=== PATIENT | female | born 1960 | race Caucasian/White ===

== ENCOUNTER 2020-04-23 10:18 | Day surgery (SDC) | payer OTHER ==
[~2020-04-23 10:18] MED LIST: Lactated Ringers 1,000 ML IV SCH; Sodium Chloride 0.9% 10 ML SDV IV PRN; Sodium Chloride 0.9% 10 ML Syringe FLUSH PRN; Sodium Chloride 0.9% 2.5 ML Syringe FLUSH PRN
--- NOTE | 2020-04-23 11:02 | PCM.PREANE ---
Preanesthetic Assessment - Anesthesia/Transfusion/Family Hx Anesthesia History: Prior Anesthesia Without Reaction Family History of Anesthesia Reaction: No Transfusion History: No Prior Transfusion(s) - Review of Systems General: No Symptoms Pulmonary: No Symptoms, Sputum Gastrointestinal: No Symptoms Neurological: No Symptoms Other: Reports: None - Physical Assessment Vital Signs: Last Vital Signs Temp 99.7 F 04/23/20 10:50 Pulse 92 04/23/20 10:50 Resp 16 04/23/20 10:50 BP 154/101 H 04/23/20 10:50 Pulse Ox 95 04/23/20 10:50 Height: 4 ft 10.5 in Weight: 68.039 kg ASA Class: 2 Mental Status: Alert & Oriented x3 Dentition: Reports: Normal Dentition ROM/Head Extension: Full Lungs: Clear to Auscultation, Normal Respiratory Effort Cardiovascular: Regular Rate, Regular Rhythm - Allergies Allergies/Adverse Reactions: Allergies Allergy/AdvReac Type Severity Reaction Status Date / Time No Known Allergies Allergy Verified 04/17/20 12:29 - Blood Blood Available: No - Anesthesia Plan Pre-Op Medication Ordered: None - Acknowledgements Anesthesia Type Planned: General Anesthesia (tiva) Pt an Appropriate Candidate for the Planned Anesthesia: Yes Alternatives and Risks of Anesthesia Discussed w Pt/Guardian: Yes Pt/Guardian Understands and Agrees with Anesthesia Plan: Yes PreAnesthesia Questionnaire Gastrointestinal History: Reports: Colon Polyp 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: Endocrine/Metabolic History: Reports: Hypothyroidism Oncologic (Cancer) History: Reports: Breast - Past Surgical History Head Surgeries/Procedures: Reports: None HEENT Surgical History: Reports: Tonsillectomy GI Surgical History: Reports: Appendectomy, Colonoscopy, Other (See Below) Other GI Surgeries/Procedures: Abdominoplasty Female Surgical History: Reports: Breast Biopsy, Breast Implant, Section, Mastectomy, Salpingo-Oophorectomy, Other (See Below) Other Female Surgeries/Procedures: hx of bilateral mastectomy with reconstruction, x3 Oncologic Surgical History: Reports: Lumpectomy, Mastectomy - SUBSTANCE USE Smoking Status *Q: Former Smoker Tobacco Use Within Last Twelve Months: No Recreational Drug Use History: No - HOME MEDS Home Medications: Home Meds Calcium Carbonate/Vitamin D3 [Calcium 600 + Vit D 200] 600 mg PO DAILY 04/17/20 [History] Cholecalciferol (Vitamin D3) [Vitamin D3] 5,000 unit PO DAILY 04/17/20 [History] Levothyroxine Sodium 88 mcg PO QAM 04/17/20 [History] Multivitamin 1 tab PO DAILY 04/17/20 [History] - CURRENT (IN HOUSE) MEDS Current Meds: Current Medications Lactated Ringer's (Ringers, Lactated) 1,000 mls @ 125 mls/hr IV ASDIRECTED MARCY Sodium Chloride (Saline Flush) 10 ml FLUSH ASDIRECTED PRN PRN Reason: Keep Vein Open Sodium Chloride (Saline Flush) 2.5 ml FLUSH ASDIRECTED PRN PRN Reason: Keep Vein Open Sodium Chloride (Saline Flush) 10 ml FLUSH ASDIRECTED PRN PRN Reason: Keep Vein Open Sodium Chloride (Saline Flush) 2.5 ml FLUSH ASDIRECTED PRN PRN Reason: Keep Vein Open Sodium Chloride (Normal Saline) 10 ml IV ASDIRECTED PRN PRN Reason: IV Use
[2020-04-23] MEDS ORDERED: fentaNYL 100 MCG/2 ML SDV ONE (12:14)
[2020-04-23] MEDS ORDERED: Midazolam 1 MG/ML 2 ML SDV ONE (12:14)
[2020-04-23] MEDS ORDERED: Propofol 200 MG/20 ML SDV ONE (12:14)
--- NOTE | 2020-04-23 13:12 | PCM.OPNOTE ---
- General Post-Op/Procedure Note Date of Surgery/Procedure: 04/23/20 Operative Procedure(s): Diagnostic colonosocpy with polypectomy Findings: Ascending colon polyp. Hyperplastic polyps of distal sigmoid colon and rectum. Pre Op Diagnosis: History of colon polyps Post-Op Diagnosis: Ascending colon polyp, hyperplastic colon polyps Anesthesia Technique: [facility] [place] Primary Surgeon: Juana Phoenix Condition: Good
--- NOTE | 2020-04-23 13:32 | PCM.POSTAN ---
POST ANESTHESIA ASSESSMENT - MENTAL STATUS Mental Status: Alert, Oriented - VITAL SIGNS Vital Signs: Last Vital Signs Temp 98.2 F 04/23/20 13:07 Pulse 67 04/23/20 13:23 Resp 20 04/23/20 13:23 BP 131/80 04/23/20 13:23 Pulse Ox 96 04/23/20 13:23 - RESPIRATORY Respiratory Status: Respiratory Rate WNL, Airway Patent, O2 Saturation Stable - CARDIOVASCULAR CV Status: Pulse Rate WNL, Blood Pressure Stable - GASTROINTESTINAL GI Status: No Symptoms - POST OP HYDRATION Hydration Status: Adequate & Stable
--- NOTE | 2020-04-23 13:32 | PCM48HPAN ---
Post Anesthesia Note - EVALUATION WITHIN 48HRS OF ANESTHETIC Vital Signs in Normal Range: Yes Patient Participated in Evaluation: Yes Respiratory Function Stable: Yes Airway Patent: Yes Cardiovascular Function Stable: Yes Hydration Status Stable: Yes Pain Control Satisfactory: Yes Nausea and Vomiting Control Satisfactory: Yes Mental Status Recovered: Yes Vital Signs: Last Vital Signs Temp 98.2 F 04/23/20 13:07 Pulse 67 04/23/20 13:23 Resp 20 04/23/20 13:23 BP 131/80 04/23/20 13:23 Pulse Ox 96 04/23/20 13:23
--- NOTE | 2020-04-24 15:58 | OR ---
SURGEON: JUANA PHOENIX MD DATE OF PROCEDURE: 04/23/2020 PREOPERATIVE DIAGNOSIS: History of colon polyps. POSTOPERATIVE DIAGNOSES: 1. Ascending colon polyp. 2. Hyperplastic sigmoid colon polyps. PROCEDURE PERFORMED: Diagnostic colonoscopy with polypectomy. PRIMARY SURGEON: Juana Phoenix MD ANESTHESIA: MAC. INSTRUMENT USED: Olympus colonoscope. EXTENT OF EXAM: To the cecum. PREPARATION: Good. LIMITATIONS: None. INDICATIONS FOR EXAMINATION: The patient is a 59-year-old female who presents for a repeat colonoscopy. She had one 5 years ago that revealed colon polyps. I explained the procedure to the patient, the expected perioperative course, and the risks. She verbalized understanding and wishes to proceed. PROCEDURE IN DETAIL: The patient was brought into the endoscopy suite and placed in the left lateral decubitus position. A time-out was completed verifying the patient's name, age, date of , allergies, and procedure to be performed. Monitored anesthesia care was induced and continuous oxygen was provided via nasal cannula throughout the procedure. After adequate sedation was achieved, a digital rectal exam was performed. This exam was within normal limits. A well-lubricated colonoscope was inserted in the rectum and advanced under direct visualization to the level of the cecum. The cecum was identified by both visual and anatomic landmarks. A photograph was taken of the cecal cap; however, I could not retroflex the scope due to looping of the scope more proximally. The scope was then fully withdrawn while examining the color, texture, anatomy, and integrity of the mucosa from the cecum to the anal canal. In the proximal ascending colon, the patient had a small sessile polyp. This was removed in piecemeal fashion using cold biopsy forceps. This was labeled as ascending colon polyp. In the distal sigmoid colon as well as the rectum, the patient was noted to have multiple hyperplastic appearing polyps. None of these appeared to have atypical features. Photographs of these were taken. The scope was then brought into the rectum and retroflexed to allow visualization of the anal canal opening. This appeared normal and a photograph was taken. The scope was straightened out and fully withdrawn. The cecum to anus time was 7 minutes. The patient tolerated the procedure well and was transferred to the PACU in stable condition. ENDOSCOPIC DIAGNOSES: 1. Ascending colon polyp. 2. Hyperplastic sigmoid colon polyps. RECOMMENDATIONS: Follow up in clinic in 2 weeks. LETTY YEN /[id number]
== END 2020-04-23 13:58 | disposition home or self-care (01) ==
LOC: MW.SDS 10:18
PROVIDERS: ATTEND Surgery
DX: Z12.11 Encounter for screening for malignant neoplasm of colon (principal); D12.2 Benign neoplasm of ascending colon; E03.9 Hypothyroidism, unspecified; Z79.890 Hormone replacement therapy; Z87.891 Personal history of nicotine dependence; Z86.010 Personal history of colon polyps; Z79.899 Other long term (current) drug therapy
CPT/HCPCS: 45380; 88305; J2001; J2250; J2704; J3010; J7120; 00812

== ENCOUNTER 2020-09-27 06:39 | Day surgery (SDC) | payer OTHER ==
[~2020-09-27 06:39] MED LIST changes: -Sodium Chloride 0.9% 10 ML SDV IV PRN; -Sodium Chloride 0.9% 10 ML Syringe FLUSH PRN; -Sodium Chloride 0.9% 2.5 ML Syringe FLUSH PRN
[2020-09-27] MEDS ORDERED: Propofol 200 MG/20 ML SDV ONE (07:02)
[2020-09-27] MEDS ORDERED: Midazolam 1 MG/ML 2 ML SDV ONE (07:02)
[2020-09-27] MEDS ORDERED: Glycopyrrolate 0.2 MG/ML SDV ONE (07:03)
[2020-09-27] MEDS ORDERED: Rocuronium Bromide 50 MG/5 ML Syringe ONE (07:03)
[2020-09-27] MEDS ORDERED: Ondansetron 4 MG/2 ML SDV ONE (07:03)
[2020-09-27] MEDS ORDERED: fentaNYL 250 MCG/5 ML SDV ONE (07:03)
[2020-09-27] MEDS ORDERED: Lidocaine 2% 5 ML SDV ONE (07:03)
--- NOTE | 2020-09-27 07:21 | PCM.PREANE ---
Preanesthetic Assessment - Anesthesia/Transfusion/Family Hx Anesthesia History: Prior Anesthesia Without Reaction Family History of Anesthesia Reaction: No Transfusion History: No Prior Transfusion(s) Intubation History: Unknown - Review of Systems General: No Symptoms Pulmonary: No Symptoms Cardiovascular: No Symptoms Gastrointestinal: No Symptoms Neurological: No Symptoms Other: Reports: None - Physical Assessment Height: 4 ft 10.5 in Weight: 67.585 kg ASA Class: 2 Mental Status: Alert & Oriented x3 Airway Class: Mallampati = 2 Dentition: Reports: Normal Dentition, [place] Flat(s) (back side) Thyro-Mental Finger Breadths: 3 Mouth Opening Finger Breadths: 3 ROM/Head Extension: Full Lungs: Clear to Auscultation, Normal Respiratory Effort Cardiovascular: Regular Rate, Regular Rhythm - Allergies Allergies/Adverse Reactions: Allergies Allergy/AdvReac Type Severity Reaction Status Date / Time No Known Allergies Allergy Verified 09/23/20 10:46 - Blood Blood Available: No - Anesthesia Plan Pre-Op Medication Ordered: None - Acknowledgements Anesthesia Type Planned: General Anesthesia Pt an Appropriate Candidate for the Planned Anesthesia: Yes Alternatives and Risks of Anesthesia Discussed w Pt/Guardian: Yes Pt/Guardian Understands and Agrees with Anesthesia Plan: Yes PreAnesthesia Questionnaire HEENT History: Reports: None Cardiovascular History: Reports: Hypertension Respiratory History: Reports: None Gastrointestinal History: Reports: Colon Polyp Genitourinary History: Reports: None 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: Musculoskeletal History: Reports: None Neurological History: Reports: None Psychiatric History: Reports: Other (See Below) Other Psychiatric History: depression in the past after loss of 2 years ago Endocrine/Metabolic History: Reports: Hypothyroidism, Obesity/BMI 30+ (BMI 30.6) Hematologic History: Reports: None Immunologic History: Reports: None Oncologic (Cancer) History: Reports: Breast Other Oncologic History: BRCA+ Dermatologic History: Reports: None - Infectious Disease History Infectious Disease History: Reports: None - Past Surgical History Head Surgeries/Procedures: Reports: None HEENT Surgical History: Reports: Oral Surgery, Tonsillectomy Cardiovascular Surgical History: Reports: None Respiratory Surgical History: Reports: None GI Surgical History: Reports: Appendectomy, Colonoscopy, Other (See Below) Other GI Surgeries/Procedures: Abdominoplasty Female Surgical History: Reports: Breast Biopsy, Breast Implant, Breast Reconstruction, Section (x3), Mastectomy (bilateral), Salpingo- Oophorectomy, Other (See Below) Other Female Surgeries/Procedures: hx of bilateral mastectomy with reconstruction, x3, max S&O, needle aspiration breast seroma Endocrine Surgical History: Reports: None Neurological Surgical History: Reports: None Musculoskeletal Surgical History: Reports: None Oncologic Surgical History: Reports: Lumpectomy, Mastectomy Dermatological Surgical History: Reports: Plastic Surgical Reconstruction/Repair - SUBSTANCE USE Tobacco Use Status *Q: Former Tobacco User Tobacco Use Within Last Twelve Months: No - HOME MEDS Home Medications: Home Meds Calcium Carbonate/Vitamin D3 [Calcium 600 + Vit D 200] 600 mg PO DAILY 04/17/20 [History] Cholecalciferol (Vitamin D3) [Vitamin D3] 5,000 unit PO DAILY 04/17/20 [History] Levothyroxine Sodium 88 mcg PO QAM 04/17/20 [History] Multivitamin 1 tab PO DAILY 04/17/20 [History] hydroCHLOROthiazide [Hydrochlorothiazide] 0.5 tab PO DAILY 09/23/20 [History] - CURRENT (IN HOUSE) MEDS Current Meds: Current Medications Lactated Ringer's (Ringers, Lactated) 1,000 mls @ 100 mls/hr IV ASDIRECTED MARCY Discontinued Medications Fentanyl (Sublimaze) Confirm Administered Dose 250 mcg .ROUTE .STK-MED ONE Stop: 09/27/20 07:04 Glycopyrrolate (Robinul) Confirm Administered Dose 0.8 mg .ROUTE .STK-MED ONE Stop: 09/27/20 07:04 Lidocaine (Xylocaine-Mpf 2%) Confirm Administered Dose 5 ml .ROUTE .STK-MED ONE Stop: 09/27/20 07:04 Midazolam HCl (Versed 1 Mg/Ml) Confirm Administered Dose 2 mg .ROUTE .STK-MED ONE Stop: 09/27/20 07:03 Ondansetron HCl (Zofran) Confirm Administered Dose 4 mg .ROUTE .STK-MED ONE Stop: 09/27/20 07:04 Propofol (Diprivan 20 Ml) Confirm Administered Dose 200 mg .ROUTE .STK-MED ONE Stop: 09/27/20 07:03 Rocuronium Rochdale (Rocuronium Rochdale) Confirm Administered Dose 50 mg .ROUTE .STK-MED ONE Stop: 09/27/20 07:04
[2020-09-27] MEDS ORDERED: ceFAZolin 1 GM Vial ONE (07:31)
[2020-09-27] MEDS ORDERED: Sodium Chloride 0.9% 20 ML ONE (07:31)
[2020-09-27] MEDS ORDERED: Methylene Blue 50 MG/10 ML Ampule ONE (07:34)
[2020-09-27] MEDS ORDERED: Bupivacaine 0.25% 10 ML SDV ONE (07:34)
[2020-09-27] MEDS ORDERED: Fluorescein 5 ML Vial ONE (07:34)
[2020-09-27] MEDS ORDERED: Octyl 2-Cyanoacrylate 1 Tube ONE (07:34)
[2020-09-27 07:45] LABS: BLOOD UREA NITROGEN,BUN 21 mg/dL (7.0-18.0); CHLORIDE,CL 108 mmol/L (98-107); GLUCOSE RANDOM 122 mg/dL (74-106); POTASSIUM,K 3.8 mmol/L (3.5-5.1); SODIUM,NA 142 mmol/L (136-145)
[2020-09-27] MEDS ORDERED: Phenylephrine 1% 10 MG/ML SDV ONE (08:42)
[2020-09-27] MEDS ORDERED: HYDROmorphone 2 MG/ML Syringe ONE (08:51)
[2020-09-27] MEDS ORDERED: Acetaminophen 1,000 MG in Premix Bag 1 BAG IV PRN (08:57)
[2020-09-27] MEDS ORDERED: fentaNYL 100 MCG/2 ML SDV IVPUSH PRN (08:57)
[2020-09-27] MEDS ORDERED: Promethazine 25 MG/ML SDV IM PRN (10:44)
[2020-09-27] MEDS ORDERED: Acetaminophen/oxyCODONE 325-5 MG Tab PO PRN ×2 (10:44)
[2020-09-27] MEDS ORDERED: Ondansetron 4 MG/2 ML SDV IVPUSH PRN (10:44)
[2020-09-27] MEDS ORDERED: Morphine 4 MG/ML Syringe IVPUSH PRN (10:44)
[2020-09-27] MEDS ORDERED: Ketorolac 30 MG/ML SDV IVPUSH ONE (10:44)
--- NOTE | 2020-09-27 11:26 | PCM.POSTAN ---
POST ANESTHESIA ASSESSMENT - MENTAL STATUS Mental Status: Alert, Oriented - VITAL SIGNS Vital Signs: Last Vital Signs Temp 36.4 C 09/27/20 10:31 Pulse 67 09/27/20 11:17 Resp 13 09/27/20 11:17 BP 149/84 H 09/27/20 11:17 Pulse Ox 96 09/27/20 11:17 - RESPIRATORY Respiratory Status: Respiratory Rate WNL, Airway Patent, O2 Saturation Stable - CARDIOVASCULAR CV Status: Pulse Rate WNL, Blood Pressure Stable - GASTROINTESTINAL GI Status: No Symptoms - PAIN Pain Score: 1 - POST OP HYDRATION Hydration Status: Adequate & Stable - OBSERVATIONS Free Text/Narrative:: No anesthesia problems
--- NOTE | 2020-09-27 12:43 | OR ---
SURGEON: Pascual Barnhart MD DATE OF PROCEDURE: 09/27/2020 INDICATION FOR PROCEDURE: A 59-year-old female with cervical dysplasia, presenting for hysterectomy. The patient was seen in 2019 with Pap smear of ASCUS and positive HPV. A colposcopy and biopsy showed DEDE 2 to 3 cervical dysplasia. The patient also has a history of breast cancer which is in remission but is BRCA1 positive. She had prophylactic bilateral salpingo-oophorectomy previously and has been menopausal. After discussion of options for treatment of cervical dysplasia including LEEP or hysterectomy,she desired to have definitive management with hysterectomy, which would also reduce her risk of endometrial cancer due to BRCA1. PREOPERATIVE DIAGNOSES: 1. Cervical dysplasia. 2. BRCA1 positive. POSTOPERATIVE DIAGNOSES: 1. Cervical dysplasia. 2. BRCA1 positive. PROCEDURES PERFORMED: Laparoscopic-assisted vaginal hysterectomy and cystoscopy. ANESTHESIOLOGIST: Dr. Peace Patel. ANESTHESIA: General anesthesia. PRIMARY SURGEON: Pascual Barnhart MD. ACCOUNT DEVELOPMENT EXECUTIVE: Isis Do M.D. FINDINGS: Normal-appearing uterus. Fallopian tubes or ovaries are surgically absent bilaterally. There was 1 cm sized multiloculated fluid filled cyst attached to the anterior abdominal wall in the pelvis. It was removed and sent to pathology. Abdomen and pelvis were grossly normal appearing without signs of malignancy. The vagina and cervix were grossly normal appearing. DESCRIPTION OF PROCEDURE: Informed consent was obtained. Risks of procedure including bleeding, infection, DVTs; and injury to surrounding organs including bladder, bowel, ureters were discussed. She was given time to ask questions and consent was signed. The patient was taken to the operating room. SCDs were placed and she was given 2 g Ancef IV for infection prophylaxis. She underwent general anesthesia with no complications. She was placed in dorsal lithotomy position and her legs supported using stirrups. She was prepped and draped in the usual sterile fashion with chlorhexidine and Betadine. A Schwarz catheter was placed. Bimanual exam showed a small anteverted uterus measuring less than 6 weeks. The speculum was placed in the vagina. The vagina and cervix were grossly normal appearing without lesions. The anterior lip of the cervix was grasped with a single-tooth tenaculum. The cervix was serially dilated with the Hegar dilators. A HUMI uterine manipulator was placed in the uterus for manipulation. Attention was turned to the abdomen. 3 mL of 0.25% Marcaine for used for local anesthesia, a 5 mm incision was made at the umbilicus. A Veress needle was used for entry. Intraperitoneal location was confirmed with saline drop test and low opening pressure. CO2 gas was initiated and pneumoperitoneum to 15 mmHg was achieved. A 5 mm trocar was placed in the abdomen under laparoscopic visualization. No visceral or vascular injury was seen at the entry site. Survey of the abdomen noted normal-appearing uterus. Bilateral fallopian tubes and ovaries were surgically absent. There was a small cystic lesion along the anterior abdominal wall that is multiloculate and fluid-filled, which appears to be an inflammatory lesion from prior surgery. The pelvis was otherwise normal appearing with no evidence of malignancy. A 5mm trocar was placed in the right lower quadrant under laparoscopic visualization followed by another 5 mm trocar in the left lower quadrant. The patient was placed in Trendelenburg position. Blunt probe was used to move the bowel away from the operative site. Saline was used for pelvic washings and sent to pathology. The uterus was elevated and pushed to the right side of the pelvis. LigaSure device was used to cauterize and transect the round ligament. The broad ligament was then dissected towards the cervix. The bladder peritoneum was dense due to prior c-sections. The bladder flap was made by dissecting the anterior peritoneum and the bladder from the underlying pubocervical fascia. The posterior peritoneum was then carefully and the uterine artery skeletonized. The uterine artery was then ligated and transected with good hemostasis. The same steps were performed on the right side of the uterus. Attention was then turned to the vaginal portion of the surgery. A weighted speculum was placed in the posterior vaginal vault. The cervix was grasped with Bernie clamps. A circumferential incision was made at the vaginal mucosa with Bovie cautery. The vagina was bluntly dissected away superiorly and inferiorly away from the cervix. The peritoneum was visualized posteriorly and the posterior cul-de-sac entered with Silva scissors. A gooseneck speculum was then placed in the cul-de-sac. The left uterosacral ligament was palpated and clamped with Dai clamp. It was then cut with Silva scissors and ligated with 2-0 Vicryl. The suture was kept to secure to the vaginal cuff. The same step was done on the opposite side. Attention was then turned to the anterior peritoneum. It was carefully dissected away until the peritoneal cavity was entered. The cardinal ligaments were then clamped and ligated with 2- 0 suture bilaterally. The uterus was then freed up and removed from the vaginal incision. The pedicles were examined and there was small amount of bleeding on the right side. The pedicle was grasped with Dai clamp and additional stitch was placed in the pedicle and hemostasis was confirmed. The lateral corners of vaginal wall were then attached to the uterosacral ligaments with the suture that was saved previously. There was small amount of bleeding along the posterior peritoneal edges and a [id number] suture was performed for hemostasis. The vaginal cuff was then closed vertically in running fashion using 0 Polysorb suture. Hemostasis was confirmed after closure. Cystoscopy was then performed. The bladder was normal appearing without any evidence of injury. Bilateral ureteral jets were seen after injection of fluorescein. Schwarz catheter was replaced. The abdomen was then insufflated. The vaginal cuff and all pedicles were examined with good hemostasis. Pneumoperitoneum was decreased to 5 mmHg and hemostasis was again confirmed. The pneumoperitoneum was then relieved and all instruments were removed. The skin incision was closed with 4-0 Monocryl in a subcuticular fashion. Dermabond was applied over the incision. The patient was awakened from anesthesia without difficulty and taken to the recovery room in stable condition. MELISSA YEN /[id number] JASON
--- NOTE | 2020-09-27 15:39 | PCM.PN ---
- General Info Date of Service: 09/27/20 Functional Status: Reports: Pain Controlled, Tolerating Diet, Ambulating, Urinating - Review of Systems General: Reports: No Symptoms HEENT: Reports: No Symptoms Pulmonary: Reports: No Symptoms Cardiovascular: Reports: No Symptoms Gastrointestinal: Reports: No Symptoms Genitourinary: Reports: No Symptoms Musculoskeletal: Reports: No Symptoms Skin: Reports: No Symptoms Neurological: Reports: No Symptoms Psychiatric: Reports: No Symptoms - Patient Data Vitals - Most Recent: Last Vital Signs Temp 36.4 C 09/27/20 12:35 Pulse 82 09/27/20 12:35 Resp 13 09/27/20 12:35 BP 127/74 09/27/20 12:35 Pulse Ox 96 09/27/20 12:35 Weight - Most Recent: 149 lb I&O - Last 24 Hours: Intake & Output 09/27/20 09/27/20 09/27/20 06:59 14:59 22:59 Intake Total 1600 Output Total 125 Balance 1475 Lab Results Last 24 Hours: Laboratory Results - last 24 hr 09/27/20 09/27/20 09/27/20 Range/Units 07:10 07:10 07:10 WBC 9.67 (4.0-11.0) K/uL RBC 4.93 (4.30-5.90) M/uL Hgb 14.0 (12.0-16.0) g/dL Hct 44.3 (36.0-46.0) % MCV 89.9 (80.0-98.0) fL MCH 28.4 (27.0-32.0) pg MCHC 31.6 (31.0-37.0) g/dL RDW Std Deviation 53.7 (28.0-62.0) fl RDW Coeff of Tremaine 16 H (11.0-15.0) % Plt Count 287 (150-400) K/uL MPV 9.70 (7.40-12.00) fL Nucleated RBC % 0.0 /100WBC Nucleated RBCs # 0 K/uL Sodium 142 (136-145) mmol/L Potassium 3.8 (3.5-5.1) mmol/L Chloride 108 H (98-107) mmol/L Carbon Dioxide 28.0 (21.0-32.0) mmol/L BUN 21 H (7.0-18.0) mg/dL Creatinine 0.7 (0.6-1.0) mg/dL Est Cr Clr Drug Dosing 62.92 mL/min Estimated GFR (MDRD) > 60.0 ml/min Glucose 122 H (74-106) mg/dL Calcium 8.8 (8.5-10.1) mg/dL HCG, Qual NEGATIVE (NEG) Blood Type Antibody Screen 09/27/20 Range/Units 07:10 WBC (4.0-11.0) K/uL RBC (4.30-5.90) M/uL Hgb (12.0-16.0) g/dL Hct (36.0-46.0) % MCV (80.0-98.0) fL MCH (27.0-32.0) pg MCHC (31.0-37.0) g/dL RDW Std Deviation (28.0-62.0) fl RDW Coeff of Tremaine (11.0-15.0) % Plt Count (150-400) K/uL MPV (7.40-12.00) fL Nucleated RBC % /100WBC Nucleated RBCs # K/uL Sodium (136-145) mmol/L Potassium (3.5-5.1) mmol/L Chloride (98-107) mmol/L Carbon Dioxide (21.0-32.0) mmol/L BUN (7.0-18.0) mg/dL Creatinine (0.6-1.0) mg/dL Est Cr Clr Drug Dosing mL/min Estimated GFR (MDRD) ml/min Glucose (74-106) mg/dL Calcium (8.5-10.1) mg/dL HCG, Qual (NEG) Blood Type B POSITIVE Antibody Screen NEGATIVE Med Orders - Current: Current Medications Ketorolac Tromethamine (Toradol) 30 mg IVPUSH Q6H PRN PRN Reason: Pain (severe 7-10) Stop: 10/02/20 17:01 Morphine Sulfate (Morphine) 4 mg IVPUSH Q2H PRN PRN Reason: Pain (severe 7-10) Ondansetron HCl (Zofran) 4 mg IVPUSH Q6H PRN PRN Reason: Nausea/Vomiting Oxycodone/Acetaminophen (Percocet 325-5 Mg) 1 tab PO Q4H PRN PRN Reason: Pain (moderate 4-6) Oxycodone/Acetaminophen (Percocet 325-5 Mg) 2 tab PO Q4H PRN PRN Reason: Pain (moderate 4-6) Promethazine HCl (Phenergan) 25 mg IM Q6H PRN PRN Reason: Nausea/Vomiting Discontinued Medications Bupivacaine HCl (Sensorcaine-Mpf 0.25%) Confirm Administered Dose 20 ml .ROUTE .STK-MED ONE Stop: 09/27/20 07:35 Cefazolin Sodium (Ancef) Confirm Administered Dose 2 gm .ROUTE .STK-MED ONE Stop: 09/27/20 07:32 Fentanyl (Sublimaze) Confirm Administered Dose 250 mcg .ROUTE .STK-MED ONE Stop: 09/27/20 07:04 Fentanyl (Sublimaze) 50 mcg IVPUSH Q5M PRN PRN Reason: Pain Fluorescein Sodium (Ak-Fluor) Confirm Administered Dose 5 ml .ROUTE .STK-MED ONE Stop: 09/27/20 07:35 Glycopyrrolate (Robinul) Confirm Administered Dose 0.8 mg .ROUTE .STK-MED ONE Stop: 09/27/20 07:04 Hydromorphone HCl (Dilaudid) Confirm Administered Dose 2 mg .ROUTE .STK-MED ONE Stop: 09/27/20 08:52 Lactated Ringer's (Ringers, Lactated) 1,000 mls @ 100 mls/hr IV ASDIRECTED MARCY Last Admin: 09/27/20 07:24 Dose: 100 mls/hr Documented by: Sodium Chloride (Normal Saline) Confirm Administered Dose 20 mls @ as directed .ROUTE .STK-MED ONE Stop: 09/27/20 07:32 Acetaminophen 1,000 mg/ Premix 100 mls @ 400 mls/hr IV ONETIME PRN PRN Reason: Pain Last Admin: 09/27/20 10:55 Dose: 400 mls/hr Documented by: Ketorolac Tromethamine (Toradol) 30 mg IVPUSH ONETIME ONE Stop: 09/27/20 10:45 Last Admin: 09/27/20 11:04 Dose: Not Given Documented by: Lidocaine (Xylocaine-Mpf 2%) Confirm Administered Dose 5 ml .ROUTE .STK-MED ONE Stop: 09/27/20 07:04 Methylene Blue (Provayblue) Confirm Administered Dose 50 mg .ROUTE .STK-MED ONE Stop: 09/27/20 07:35 Midazolam HCl (Versed 1 Mg/Ml) Confirm Administered Dose 2 mg .ROUTE .STK-MED ONE Stop: 09/27/20 07:03 Octyl Cyanoacrylate (Dermabond Advance) Confirm Administered Dose 1 applic .ROUTE .STK-MED ONE Stop: 09/27/20 07:35 Ondansetron HCl (Zofran) Confirm Administered Dose 4 mg .ROUTE .STK-MED ONE Stop: 09/27/20 07:04 Phenylephrine HCl (Anibal-Synephrine) Confirm Administered Dose 10 mg .ROUTE .STK- MED ONE Stop: 09/27/20 08:43 Propofol (Diprivan 20 Ml) Confirm Administered Dose 200 mg .ROUTE .STK-MED ONE Stop: 09/27/20 07:03 Rocuronium White Bird (Rocuronium White Bird) Confirm Administered Dose 50 mg .ROUTE .STK-MED ONE Stop: 09/27/20 07:04 - Exam General: Alert, Oriented, Cooperative, No Acute Distress HEENT: Pupils Equal, Pupils Reactive Neck: Supple, Trachea Midline, No JVD Lungs: Normal Respiratory Effort GI/Abdominal Exam: Soft, Non-Tender, No Organomegaly, No Distention Back Exam: Normal Inspection Extremities: Normal Inspection, Normal Range of Motion, Non-Tender, No Pedal Edema Skin: Warm, Dry, Intact Wound/Incisions: Healing Well Neurological: No New Focal Deficit Psy/Mental Status: Alert, Normal Affect, Normal Mood Sepsis Event Note - Evaluation Sepsis Screening Result: No Definite Risk - Focused Exam Vital Signs: Vital Signs Temp Pulse Resp BP Pulse Ox 09/27/20 12:35 36.4 C 82 13 127/74 96 09/27/20 11:50 74 14 159/88 H 100 09/27/20 11:35 36.3 C 62 12 170/79 H 97 09/27/20 11:17 67 13 149/84 H 96 09/27/20 11:11 72 11 L 152/86 H 97 09/27/20 11:07 81 12 144/87 H 94 L 09/27/20 11:02 77 14 169/87 H 95 09/27/20 10:56 65 10 L 166/79 H 95 09/27/20 10:51 72 10 L 170/87 H 96 09/27/20 10:47 72 8 L 162/84 H 100 09/27/20 10:41 74 12 162/87 H 100 09/27/20 10:36 77 10 L 180/96 H 100 09/27/20 10:31 36.4 C 88 16 173/88 H 100 09/27/20 07:00 36.4 C 74 16 189/94 H 97 - Problem List Review Problem List Initiated/Reviewed/Updated: Yes - My Orders Last 24 Hours: My Active Orders 09/27/20 10:44 Patient Status [ADT] Routine Notify Provider Intake and Out [RC] ASDIRECTED Notify Provider Vital Signs [RC] ASDIRECTED Oxygen Therapy [RC] ASDIRECTED RT Incentive Spirometry [RC] Q2HWA Up With Assistance [RC] PER UNIT ROUTINE Up ad Sherry [RC] PER UNIT ROUTINE Urinary Catheter Removal [RC] Per Unit Routine Vital Signs [RC] PER UNIT ROUTINE Acetaminophen/oxyCODONE [Percocet 325-5 MG] 1 tab PO Q4H PRN Acetaminophen/oxyCODONE [Percocet 325-5 MG] 2 tab PO Q4H PRN Morphine 4 mg IVPUSH Q2H PRN Ondansetron [Zofran] 4 mg IVPUSH Q6H PRN Promethazine [Phenergan] 25 mg IM Q6H PRN Peripheral IV Discontinue [OM.PC] Routine Sequential Compression Device [OM.PC] Per Unit Routine Resuscitation Status Routine 09/27/20 10:45 Antiembolic Devices [RC] PER UNIT ROUTINE 09/27/20 Lunch Regular Diet [DIET] 09/27/20 15:38 Ready for Discharge [RC] PER UNIT ROUTINE 09/27/20 17:00 Ketorolac [Toradol] 30 mg IVPUSH Q6H PRN 09/28/20 05:11 BASIC METABOLIC PANEL,BMP [CHEM] AM CBC WITH AUTO DIFF [HEME] AM - Assessment Assessment:: 59yo POD0 s/p LAVH, cystoscopy. Stable and recovering well. - Plan Plan:: - vital stable - ambulating, tolerating PO, and voiding - pain controlled - incision healing well, minimal vaginal bleeding Patient desires discharge home today, given postoperative care instructions.
[2020-09-27] MEDS ORDERED: Ketorolac 30 MG/ML SDV IVPUSH PRN (17:00)
== END 2020-09-27 16:30 | disposition home or self-care (01) ==
LOC: MW.SDS 06:39 → MW.MS 12:24 → MW.SDS 16:30
PROVIDERS: ATTEND Obstetrics & Gynecology
DX: D25.0 Submucous leiomyoma of uterus (principal); N87.0 Mild cervical dysplasia; I10 Essential (primary) hypertension; E03.9 Hypothyroidism, unspecified; E66.9 Obesity, unspecified; Z79.890 Hormone replacement therapy; Z98.890 Other specified postprocedural states; Z87.891 Personal history of nicotine dependence; Z68.29 Body mass index [BMI] 29.0-29.9, adult; Z79.899 Other long term (current) drug therapy
CPT/HCPCS: 36415; 58550; 80048; 84703; 85027; 86850; 86900; 86901; A9270; J0131; J0690; J1170; J2001; J2250; J2370; J2704; J3010; J3490; J7120; 00944; 88104; 88307; J2405

== ENCOUNTER 2021-10-30 12:29 | Day surgery (SDC) | payer OTHER ==
[~2021-10-30 12:29] MED LIST changes: +Lidocaine 2% 5 ML SDV ONE; +Midazolam 1 MG/ML 2 ML SDV ONE; +Propofol 200 MG/20 ML SDV ONE; +Sodium Chloride 0.9% 10 ML Syringe FLUSH PRN; +Sodium Chloride 0.9% 2.5 ML Syringe FLUSH PRN; +Sodium Chloride 0.9% 20 ML SDV IV PRN; +fentaNYL 100 MCG/2 ML SDV ONE
--- NOTE | 2021-10-30 14:03 | PCM.PREANE ---
Preanesthetic Assessment - Anesthesia/Transfusion/Family Hx Anesthesia History: Prior Anesthesia Without Reaction Family History of Anesthesia Reaction: No Transfusion History: No Prior Transfusion(s) Intubation History: Unknown - Review of Systems General: No Symptoms Pulmonary: No Symptoms Cardiovascular: No Symptoms Gastrointestinal: No Symptoms, Abdominal Pain (epigastric pain periodically) Neurological: No Symptoms Other: Reports: None, Thyroid Problems - Physical Assessment NPO Status Date: 10/29/21 NPO Status Time: 00:00 Vital Signs: Last Vital Signs Temp 36.5 C 10/30/21 13:46 Pulse 72 10/30/21 13:46 Resp 16 10/30/21 13:46 BP 174/84 H 10/30/21 13:46 Pulse Ox 96 10/30/21 13:46 Height: 1.5 m Weight: 70.76 kg ASA Class: 2 Mental Status: Alert & Oriented x3 Airway Class: Mallampati = 2 Dentition: Reports: Normal Dentition Thyro-Mental Finger Breadths: 3 Mouth Opening Finger Breadths: 3 ROM/Head Extension: Full Lungs: Clear to Auscultation, Normal Respiratory Effort Cardiovascular: Regular Rate, Regular Rhythm - Lab Values: Laboratory Last Values SARS-CoV-2 RNA (ARTURO) NEGATIVE (NEGATIVE) 10/30/21 12:30 - Allergies Allergies/Adverse Reactions: Allergies Allergy/AdvReac Type Severity Reaction Status Date / Time No Known Allergies Allergy Verified 10/30/21 13:47 - Acknowledgements Anesthesia Type Planned: General Anesthesia Pt an Appropriate Candidate for the Planned Anesthesia: Yes Alternatives and Risks of Anesthesia Discussed w Pt/Guardian: Yes Pt/Guardian Understands and Agrees with Anesthesia Plan: Yes PreAnesthesia Questionnaire HEENT History: Reports: None Cardiovascular History: Other Cardiovascular History: has "white coat" syndrome Respiratory History: Reports: None Gastrointestinal History: Reports: Colon Polyp, Other (See Below) Other Gastrointestinal History: heartburn and abdominal pain that "comes and goes" Genitourinary History: Reports: None 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 SUPPLIER 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: Reports: Musculoskeletal History: Reports: None Neurological History: Reports: None Psychiatric History: Reports: Other (See Below) Other Psychiatric History: depression in the past after loss of 4 years ago Endocrine/Metabolic History: Reports: Hypothyroidism, Obesity/BMI 30+ Hematologic History: Reports: None Immunologic History: Reports: None Oncologic (Cancer) History: Reports: Breast Other Oncologic History: BRCA+ Dermatologic History: Reports: None - Infectious Disease History Infectious Disease History: Reports: None - Past Surgical History Head Surgeries/Procedures: Reports: None HEENT Surgical History: Reports: Oral Surgery, Tonsillectomy Other HEENT Surgeries/Procedures: teeth extracted Cardiovascular Surgical History: Reports: None Respiratory Surgical History: Reports: None GI Surgical History: Reports: Appendectomy, Colonoscopy, Other (See Below) Other GI Surgeries/Procedures: Abdominoplasty Female Surgical History: Reports: Breast Biopsy, Breast Implant, Breast Recon struction, Section, Hysterectomy, Mastectomy, Salpingo-Oophorectomy, Other (See Below) Other Female Surgeries/Procedures: hx of bilateral mastectomy with reconstru ction, x3, max S&O, needle aspiration breast seroma Endocrine Surgical History: Reports: None Neurological Surgical History: Reports: None Musculoskeletal Surgical History: Reports: None Oncologic Surgical History: Reports: Lumpectomy, Mastectomy Dermatological Surgical History: Reports: Plastic Surgical Reconstruction/Repair - SUBSTANCE USE Tobacco Use Status *Q: Former Tobacco User Tobacco Use Within Last Twelve Months: No Recreational Drug Use History: No - HOME MEDS Home Medications: Home Meds Calcium Carbonate/Vitamin D3 [Calcium 600 + Vit D 200] 1,200 mg PO DAILY 04/17/20 [History] Cholecalciferol (Vitamin D3) [Vitamin D3] 5,000 unit PO DAILY 04/17/20 [History] Levothyroxine Sodium 88 mcg PO QAM 04/17/20 [History] Multivitamin 1 tab PO DAILY 04/17/20 [History] - CURRENT (IN HOUSE) MEDS Current Meds: Current Medications Lactated Ringer's (Ringers, Lactated) 1,000 mls @ 125 mls/hr IV ASDIRECTED [facility] Last Admin: 10/30/21 13:48 Dose: 125 mls/hr Documented by: Sodium Chloride (Sodium Chloride 0.9% 20 Ml Sdv) 10 ml IV ASDIRECTED PRN PRN Reason: IV Use Sodium Chloride (Sodium Chloride 0.9% 10 Ml Syringe) 10 ml FLUSH ASDIRECTED PRN PRN Reason: Keep Vein Open Sodium Chloride (Sodium Chloride 0.9% 2.5 Ml Syringe) 2.5 ml FLUSH ASDIRECTED P RN PRN Reason: Keep Vein Open Discontinued Medications Fentanyl (Fentanyl 100 Mcg/2 Ml Sdv) Confirm Administered Dose 100 mcg .ROUTE .STK-MED ONE Stop: 10/30/21 10:50 Lidocaine (Lidocaine 2% 5 Ml Sdv) Confirm Administered Dose 5 ml .ROUTE .STK-MED ONE Stop: 10/30/21 10:50 Midazolam HCl (Midazolam 1 Mg/Ml 2 Ml Sdv) Confirm Administered Dose 2 mg .ROUTE .STK-MED ONE Stop: 10/30/21 10:50 Propofol (Propofol 200 Mg/20 Ml Sdv) Confirm Administered Dose 200 mg .ROUTE .STK-MED ONE Stop: 10/30/21 10:50
--- NOTE | 2021-10-30 15:15 | PCM.OPNOTE ---
- General Post-Op/Procedure Note Date of Surgery/Procedure: 10/30/21 Operative Procedure(s): Diagnostic EGD Findings: Gastritis Pre Op Diagnosis: Epigastric pain Post-Op Diagnosis: Gastritis Anesthesia Technique: MAC Primary Surgeon: Juana Phoenix Condition: Good
--- NOTE | 2021-10-30 15:15 | PCM.POSTAN ---
POST ANESTHESIA ASSESSMENT - MENTAL STATUS Mental Status: Alert, Oriented - VITAL SIGNS Vital Signs: Last Vital Signs Temp 36.5 C 10/30/21 13:46 Pulse 72 10/30/21 13:46 Resp 16 10/30/21 13:46 BP 174/84 H 10/30/21 13:46 Pulse Ox 96 10/30/21 13:46 - RESPIRATORY Respiratory Status: Respiratory Rate WNL, Airway Patent - CARDIOVASCULAR CV Status: Pulse Rate WNL, Blood Pressure Stable - GASTROINTESTINAL GI Status: No Symptoms - POST OP HYDRATION Hydration Status: Adequate & Stable
--- NOTE | 2021-10-30 15:16 | PCM48HPAN ---
Post Anesthesia Note - EVALUATION WITHIN 48HRS OF ANESTHETIC Vital Signs in Normal Range: Yes Patient Participated in Evaluation: Yes Respiratory Function Stable: Yes Airway Patent: Yes Cardiovascular Function Stable: Yes Hydration Status Stable: Yes Pain Control Satisfactory: Yes Nausea and Vomiting Control Satisfactory: Yes Mental Status Recovered: Yes Vital Signs: Last Vital Signs Temp 36.5 C 10/30/21 13:46 Pulse 72 10/30/21 13:46 Resp 16 10/30/21 13:46 BP 174/84 H 10/30/21 13:46 Pulse Ox 96 10/30/21 13:46
--- NOTE | 2021-10-30 21:48 | OR ---
SURGEON: JUANA PHOENIX MD DATE OF PROCEDURE: 10/30/2021 PREOPERATIVE DIAGNOSIS: Epigastric pain. POSTOPERATIVE DIAGNOSIS: Gastritis. PROCEDURE PERFORMED: Diagnostic esophagogastroduodenoscopy with biopsy. PRIMARY SURGEON: Juana Phoenix MD ANESTHESIA: MAC. INSTRUMENT USED: Olympus endoscope. EXTENT OF EXAM: To the second portion of duodenum. PREPARATION: Good. LIMITATIONS: None. INDICATIONS FOR EXAMINATION: The patient is a 60-year-old female who presents with epigastric abdominal pain. The decision was made to proceed with diagnostic EGD. I explained the procedure, expected perioperative course, and the risks. She verbalized understanding and wishes to proceed. PROCEDURE IN DETAIL: The patient was brought in to the endoscopy suite and placed in the left lateral decubitus position. A time-out was completed verifying the patient's name, age, date of , allergies, and procedure to be performed. Monitored anesthesia care was induced and continuous oxygen was provided via nasal cannula throughout the procedure. A bite block was placed in the patient's mouth. After adequate sedation was achieved, a well-lubricated endoscope was placed in the patient's mouth and advanced under direct visualization to the level of the second portion of the duodenum. A photograph of this was taken. The scope was then straightened out and fully withdrawn while examining the color, texture, anatomy, and integrity of the mucosa of the upper GI tract. The patient had a normal-appearing duodenum. The scope was brought into the stomach and a photograph was taken of the pylorus and GE junction. They both appeared anatomically normal. The gastric mucosa, however, appeared grossly inflamed, particularly in the body of the stomach. Photographs of this were taken. Biopsies were taken of the gastric antrum, body, and fundus and sent for histologic review and H pylori testing. The scope was then brought into the distal esophagus and a photograph was taken of the Z-line. This appeared normal. A small biopsy was taken of the esophagus 1 cm above the Z-line and sent to Pathology for histologic review. The remainder of the esophagus was normal. The scope was removed and the procedure was terminated. The patient tolerated the procedure well and was transferred to the PACU in stable condition. ENDOSCOPIC DIAGNOSIS: Gastritis. RECOMMENDATIONS: We will start the patient on pantoprazole and see her in two weeks to review her pathology results. LETTY YEN /[id number]
== END 2021-10-30 16:00 | disposition home or self-care (01) ==
LOC: MW.SDS 12:29
PROVIDERS: ATTEND Surgery
DX: K29.50 Unspecified chronic gastritis without bleeding (principal); B96.81 Helicobacter pylori [H. pylori] as the cause of diseases classified elsewhere; E03.9 Hypothyroidism, unspecified; Z79.899 Other long term (current) drug therapy; Z79.890 Hormone replacement therapy; Z90.49 Acquired absence of other specified parts of digestive tract; Z98.890 Other specified postprocedural states; Z87.891 Personal history of nicotine dependence; Z01.812 Encounter for preprocedural laboratory examination; Z20.822 Contact with and (suspected) exposure to COVID-19
CPT/HCPCS: 43239; 87635; J2250; J2704; J3010; J7120; 00731; U0002